=== PATIENT | male | born 1950 | race Caucasian/White ===

== ENCOUNTER → 2022-01-23 08:25 | Outpatient (BNVA) | payer MEDICARE, MEDICAID, SELFPAY | PROVIDERS: Visit Provider Psychiatry & Neurology Neurology | DX: G20 Parkinson's disease (principal) | CPT/HCPCS: 99212 ==

== ENCOUNTER → 2022-06-15 12:41 | Outpatient (BNVA) | payer MEDICARE, MEDICAID, SELFPAY | PROVIDERS: PCP Family Medicine; Visit Provider Psychiatry & Neurology Neurology | DX: G20 Parkinson's disease (principal); G47.00 Insomnia, unspecified; Z79.899 Other long term (current) drug therapy | CPT/HCPCS: 99212 ==

== ENCOUNTER → 2022-11-30 13:48 | Outpatient (BNVA) | payer MEDICARE, MEDICAID, SELFPAY | PROVIDERS: PCP Family Medicine; Visit Provider Psychiatry & Neurology Neurology | DX: G20 Parkinson's disease (principal); G47.00 Insomnia, unspecified | CPT/HCPCS: 99212 ==

== ENCOUNTER 2023-04-07 08:53 | Outpatient (AMB) | payer MEDICARE, MEDICAID, SELFPAY ==
[2023-04-07 08:56] VITALS: BP 114/78; PULSE 67; O2SAT 98; BMI 27.0
--- NOTE | 2023-04-07 08:56 | A.OFFVIS_ITS ---
Intake Vital Signs 04/07/23 08:56 Height 5 ft 10 in Weight 188 lb BMI 27.0 BP 114/78 Blood Pressure Location Lt brachial Position Sitting Pulse 67 Pulse Source Pulse Oximeter Pulse Oximetry (%) 98 Oxygen Delivery Method Room Air Intake Visit Reasons: 4m Follow up Intake Note: Patient presents for 4 month follow up Allergies No Known Allergies Allergy (Verified 04/07/23 08:59) Medication List - Last Reconciled 04/07/23 by Maria T Nye MD aspirin (Adult Low Dose Aspirin) 81 mg PO DAILY carbidopa-levodopa 25-100 mg 2 tabs PO QID carvedilol 6.25 mg PO Q12H coenzyme Q10 200 mg PO DAILY ezetimibe 10 mg PO DAILY gabapentin 1-2 tabs orally bedtime; multivitamin (Daily Multi-Vitamin tablet) 1 tab PO DAILY HPI HPI Comments History of Present Illness Details ???72y/o male comes for follow up.His tremors are better with increase in sinemet dose to 2tabs qid . He reports freezing episodes.???His gait is slow intermittently . He is independent in all his activities of daily living. The pain is worse on dialysis days and is worse when moving .He reports fatigue on dialysis days. No abnormal leg movements.He has trouble falling asleep- his sleep hygiene is poor. ???He has trouble falling asleep, wakes up 1-2 times.No snoring . ???No falls. No dizziness ???He does not exercise. [facility] Medical History Chronic kidney disease HTN (hypertension) Surgical History History of open heart surgery Social History Alcohol intake: current Alcohol intake frequency: does not drink Patient Tobacco Use Status: Never used Tobacco Physical Exam Vital Signs: Last Vital Signs Pulse 67 04/07/23 08:56 BP 114/78 04/07/23 08:56 Pulse Ox 98 04/07/23 08:56 Oxygen Delivery Method Room Air 04/07/23 08:56 BMI result Body Mass Index 27.0 Const General: cooperative, healthy appearing and comfortable Nutritional Appearance: average body habitus Orientation/consciousness: patient oriented x3 Neuro Other: Moderate bradykinesia No tremors today Mild dyskinesias. Heriberto Cogwheel rigidity R>L FFM and foot taps heriberto R>L Gait- slow, decreased arm swing on right and no arm swing on Left- slower than last visit General: patient oriented x3 Cranial nerves: Yes Normal facial strength present Cognition (Neuro): normal cognition Assessment & Plan Assessment & Plan (1) Parkinson's disease: Code(s): G20 - Parkinson's disease (2) Insomnia: Code(s): G47.00 - Insomnia, unspecified Plan Sinemet 25/100 2tabs Qid PT for gait training gabapentin 100 mg 1-2 tabs qhs Orders: Orders PT Evaluation and Treatment Today G20 - Parkinson's disease Medications: Refilled gabapentin 1-2 tabs orally bedtime; 60 caps 3RF Coding Level of Care Code Est Pt Level 4 (91750) Diagnoses Parkinson's disease G20 Insomnia G47.00
== END 2023-04-07 09:17 | disposition home or self-care (01) ==
PROVIDERS: Visit Provider Psychiatry & Neurology Neurology
DX: G20 Parkinson's disease (principal); G47.00 Insomnia, unspecified
CPT/HCPCS: 99214

== ENCOUNTER → 2023-04-07 08:53 | Outpatient (BNVA) | payer MEDICARE, MEDICAID, SELFPAY | PROVIDERS: Visit Provider Psychiatry & Neurology Neurology | DX: G20 Parkinson's disease (principal); G47.00 Insomnia, unspecified | CPT/HCPCS: 99212 ==

== ENCOUNTER 2024-04-05 12:18 | Outpatient (AMB) | payer MEDICARE, MEDICAID, SELFPAY ==
--- NOTE | 2024-04-05 12:22 | A.OFFVIS_ITS ---
Vital Signs 04/05/24 12:23 Height 51 ft Weight 184 lb 2 oz BMI 0.3 BP 150/80 H Blood Pressure Location Rt brachial Respiration 16 Pulse 76 Pulse Source Palpation Intake Visit Reasons: f/u appt Intake Note: Pt presents to the office for 1 year follow up for tremors. Digital Marketing Assistant Required: No Information Interpreted: non-clinical only Allergies No Known Allergies Allergy (Verified 04/05/24 12:22) Medication List - Last Reconciled 04/05/24 by Maria T Nye MD aspirin (Adult Low Dose Aspirin) 81 mg PO DAILY carbidopa-levodopa 25-100 mg 2 tabs PO QID carvedilol 6.25 mg PO Q12H coenzyme Q10 200 mg PO DAILY ezetimibe 10 mg PO DAILY gabapentin 1-2 tabs orally bedtime; multivitamin (Daily Multi-Vitamin tablet) 1 tab PO DAILY sevelamer carbonate 800 mg PO TID HPI Comments Details: ???73y/o male comes for follow up.His gait is worse and he is having visual hallucinations. He is on sinemet 25/100 3tabs tid no falls. He reports freezing episodes.???His gait is slow and he does not exercise. He is independent in all his activities of daily living. .He reports fatigue on dialysis days. No abnormal leg movements.He has trouble falling asleep- his sleep hygiene is poor. ???He has trouble falling asleep, wakes up 1-2 times.No snoring . ???No falls. No dizziness ???He does not exercise. [facility] Medical History (Updated 04/05/24 @ 13:07 by Maria T Nye MD) Parkinson's disease without dyskinesia HTN (hypertension) Chronic kidney disease Surgical History History of open heart surgery Social History Alcohol intake: current Alcohol intake frequency: does not drink Patient Tobacco Use Status: Never used Tobacco Physical Exam Vital Signs: Last Vital Signs Pulse 76 04/05/24 12:23 Resp 16 04/05/24 12:23 BP 150/80 H 04/05/24 12:23 BMI result Body Mass Index 0.3 Const General: cooperative, healthy appearing and comfortable Nutritional Appearance: average body habitus Orientation/consciousness: patient oriented x3 Neuro Other: Moderate bradykinesia left UE rest tremors high amplitude No dyskinesias. Heriberto Cogwheel rigidity mild L>R FFM and foot taps heriberto L>R Gait- slow, decreased arm swing on right and no arm swing on Left- slower than last visit General: patient oriented x3 Cranial nerves: Yes Normal facial strength present Cognition (Neuro): normal cognition Assessment & Plan Assessment & Plan (1) Parkinson's disease without dyskinesia: Code(s): G20.A1 - Parkinson's disease without dyskinesia, without mention of fluctuations Category: Medical Plan Change carbidopa/levodopa 25/100 2 tabs qid PT once a week for gait and balance Orders: Orders PT Evaluation and Treatment Today G20.A1 - Parkinson's disease without dyskinesia, without mention of fluctuations Medications: Refilled carbidopa-levodopa 25-100 mg 2 tabs PO QID 240 tabs 6RF Coding Level of Care Code Est Pt Level 4 (65378) Diagnoses Parkinson's disease without dyskinesia G20.A1
[2024-04-05 12:23] VITALS: BP 150/80; PULSE 76; RESP 16
== END 2024-04-05 13:17 | disposition home or self-care (01) ==
PROVIDERS: PCP Family Medicine; Visit Provider Psychiatry & Neurology Neurology
DX: G20.A1 Parkinson's disease without dyskinesia, without mention of fluctuations (principal)
CPT/HCPCS: 99214

== ENCOUNTER → 2024-04-05 12:18 | Outpatient (BNVA) | payer MEDICARE, MEDICAID, SELFPAY | PROVIDERS: PCP Family Medicine; Visit Provider Psychiatry & Neurology Neurology | DX: G20.A1 Parkinson's disease without dyskinesia, without mention of fluctuations (principal) | CPT/HCPCS: 99212 ==